=== PATIENT | male | born 1960 | race Caucasian/White ===

== ENCOUNTER 2019-09-23 06:08 | Inpatient (IN) | payer OTHER, SELFPAY ==
[2019-09-11 09:57] VITALS: BMI 29.4
[2019-09-23] VITALS (19 sets, daily range): BP systolic 119–155; BP diastolic 74–102; PULSE 81–107; RESP 10–20; TEMP 36.3–37.5; O2SAT 92–100; BMI 29.3
--- NOTE | 2019-09-23 | DI.RAD.S_ITS ---
PROCEDURE: XR LUMBAR SPINE 2-3V INDICATIONS: L3-4, L4-5, L5-S1 TLIF TECHNIQUE: 2 views of the lumbar spine were acquired. COMPARISON: None. FINDINGS: Bones: Digital imaging is acquired immediately after operative fusion between L3 and S1, utilizing bilateral transverse pedicle screws and bilateral vertical fixation rods with interbody disc cage prosthesis devices at L3-4, L4-5, and L5-S1. Soft tissues: Overlying bowel gas pattern is normal. No suspicious soft tissue calcifications. IMPRESSION: Normal alignment established after posterior fusion with interbody disc prosthesis devices, with fusion spanning from L3-S1. Dictated by: Matt Reyes M.D. on 09/23/2019 at 14:51 Approved by: Matt Reyes M.D. on 09/23/2019 at 14:53
[2019-09-23] MEDS: LACTATED RINGERS 1,000 ML 42 ML IV ×2 (07:39→11:23)
--- NOTE | 2019-09-23 07:39 | SUR.PREOP ---
pt reports has chronic numbness and tingling in bilateral lower extremities.
[2019-09-23] MEDS: CEFAZOLIN 2 GM/100 ML FROZ.PIGGY IV ×3 (07:46→21:33)
--- NOTE | 2019-09-23 07:46 | PM.PREOP ---
Pre-operative Note Interval Note History & Physical reviewed/Exam performed by Physician: Yes Changes to H&P: No
--- NOTE | 2019-09-23 08:30 | SUR.OPER ---
Prone on spine table, head in foam head support, padded chest and pelvic supports, gel pad at knees, lower legs supported by pillows; nipples, genitalia and toes free of pressure, arms secured on foam padded arm boards at <90 degrees abduction. Tape over blanket at thigh secured to table.
[2019-09-23] MEDS: BUPIVACAINE LIPOSOME 266 MG/20 ML VIAL INJ (08:40)
[2019-09-23] MEDS: BUPIVACAINE 0.25% W/ EPI 30 ML VIAL INJ (08:40)
--- NOTE | 2019-09-23 14:49 | P.OP_ITS ---
Operative Date/Time/Diagnoses Date of procedure: 09/23/19 Time of procedure: 08:11 Pre-op diagnosis: 1. L3-4, L4-5, L5-S1 spinal stenosis with neurogenic claudication 2. L3-4, L4-5, L5-S1 spondylolisthesis Post-op diagnosis: same Procedure & Clinicians Procedure: 1. L3-4, L4-5, L5-S1 Postero-lateral and posterior interbody fusion 2. L3-4, L4-5, L5-S1 interbody cage placement. 3. L3-4, L4-5, L5-S1 decompressive laminectomy with bilateral facetecomies 4. L3-4, L4-5, L5-S1 Posterior segmental instrumentation 5. [place] of bone marrow from iliac crest 6. Utilization of microsurgical technique and operating microscope Same procedure as scheduled: Yes Indications: Patient has been having chronic back pain and worsening lumbar radiculopathy. Patient failed multiple conservative management with worsening pain weakness and numbness in her lower extremity. Patient has been having difficulty performing activity of daily living. After discussing risks benefits of treatment options, patient elected proceed with surgery. Surgeon: Jag Land Tc Operator: Sunshine Barfield Click Yes if Unassisted: No Anesthesia Type: General Operative Notes Closure Type: primary Specimen(s): none sent Prosthetic devices, grafts, tissues, transplants, or devices: Globus revolve screws, Rise cages Applied: catheter Estimated Blood Loss (mL): 200 Blood products transfused: none Procedure in detail: Patient was seen in the preoperative area. Risks and benefits of the surgery was discussed with the patient. Informed consent was obtained from the patient and placed in the chart. Surgical site was marked. Patient was taken to the operative room. General anesthesia was administered. Prophylactic antibiotic was given to the patient less than 30 min before the incision was made. Patient was placed into a prone position on the Miguel table. Patient's back was then prepped and draped in the sterile fashion. Time- out was performed at this time. Using AP and lateral C-arm imaging the interval between L3-S1 was identified and marked on patient's back. A 3 inch incision 2 in from midline was made on the left side first. The fascia was incised in line with skin incision. Globus MARS retractors was placed inside the incision and docked onto the L3, L4 and L5 lamina. Using microsurgical technique and operating microscope, a L3, L4 and L5 laminectomy and L3-4, L4-5 L5-S1 facetectomy was performed using a Kerrison rongeur. Patient was found have severe central and neural foramen stenosis secondary to enlarged facet joints hypertrophied ligamentum flavum at all 3 levels and also significant amount of epidural lipomatosis at L5-S1 level. Patient's stenosis was fully decompressed after the decompression was completed. The disc space at L3-4, L4-5, L5-S1 was identified. And a total diskectomy was performed at L3-4, L4-5, L5-S1 level. The endplates were decorticated using a rasp and shaver. The total diskectomy and decortication was performed at L3-4, L4-5, L5-S1 level in order to to accomplish a L3-4, L4-5, L5-S1 fusion. The local bone from the laminectomy and facetectomy was saved for local bone grafting. After the total diskectomy and decortication was completed, Bio4 bone graft material was combined with local bone that was harvested earlier. At this time, a separate skin is incision was made over the iliac crest. A Jamshidi needle was inserted into the iliac crest through a separate skin incision. 5 cc of bone marrow aspiration was obtained through the separate skin incision using a Jamshidi needle from the iliac crest. The bone marrow aspiration was combined with local bone and the Bio4 bone grafting material. The bone grafting material was placed into the L3-4, L4-5, L5-S1 interbody space along with three cages, one expandable cage at each level. The cages were expanded to their maximum height using the torque limiting screwdriver. At this time a mirror image incision was made on the right side. The fascia was incised in line with the skin incision. Globus MARS retractor was inserted and docked onto the L3-4, L4-5, L5-S1 posterolateral gutter. Using the power drill, posterior-lateral decortication was performed at L3-4, L4-5, L5-S1 level until bleeding cortical bone was identified. The remaining bone grafting material was placed into the L3-4, L4-5 L5-S1 posterior lateral gutter he order to accomplish posterolateral fusion at the L3-4, L4-5 L5-S1 levels. Using the double C-arm technique, pedicle screws were placed into the L3, L4, L5, S1 pedicles bilaterally. This was done by placing the Jamshidi needle into the pedicles, then placing the guidewires over the Jamshidi needle, and finally placing the cannulated screws over the guidewires bilaterally. After the pedicle screws were placed, 2 titanium rods was locked into the heads of the pedicle screws using locking caps and torque limiting screwdriver. Total 8 pedicles screws were placed. After all the hardware was placed, and confirmed with AP and lateral C-arm imaging, the wound was then irrigated with sterile normal saline and packed with Ray-Angelita gauze for 3 min to accomplish hemostasis. After the gauze was removed the deep fascia was closed with #1 Vicryl suture. The subcutaneous layer was closed with 2-0 Vicryl. The skin was closed with skin aline. Patient tolerated the procedure well. There were no complications. Complications: none Post-operative Condition: stable Disposition: PACU Plan for aftercare: Admit to inpatient hospital
[2019-09-23] MEDS: HYDROMORPHONE 2 MG INJ IV ×6 (15:15→15:50)
[2019-09-23] MEDS: hydrOXYzine 50 MG/ML INJ 25 MG IM (15:27)
[2019-09-23] MEDS: fentaNYL 100 MCG/2 ML INJ IV ×2 (15:35→15:40)
[2019-09-23] MEDS: OXYCODONE IR 10 MG TABLET PO ×2 (19:15→23:35)
[2019-09-23] MEDS: SODIUM CHLORIDE 0.9% 1,000 ML 100 ML IV (19:17)
--- NOTE | 2019-09-23 19:48 | PC.NURSE ---
Addendum entered by Inez Orlando R.N. 09/23/19 22:39: Pt stable post op course. Med at 1915 for discomfort w/good relief. Call light w/in reach, bed alarm on for pt safety. Continue w/plan of care. Original Note: Pt arrived from PACU @ 1650 Alert/oriented, Dsg to back CDI IV hung at 100cc/hr via pump as per orders. crandall cath patent clear yellow urine. Call light w/in reach, family in room, pt calls approriately for needs.
[2019-09-23] MEDS: HYDROMORPHONE 0.5 MG INJ IV (21:32)
[2019-09-23] MEDS: hydrOXYzine pamoate 25 MG CAPSULE PO (23:36)
[2019-09-24] VITALS (7 sets, daily range): BP systolic 113–136; BP diastolic 61–93; PULSE 76–97; RESP 16–18; TEMP 36.3–37.6; O2SAT 93–95
[2019-09-24] MEDS: HYDROMORPHONE 0.5 MG INJ IV ×3 (01:30→09:19)
[2019-09-24] MEDS: OXYCODONE IR 10 MG TABLET PO ×2 (02:33→05:28)
[2019-09-24] MEDS: SODIUM CHLORIDE 0.9% 1,000 ML 100 ML IV (02:35)
[2019-09-24] MEDS: CEFAZOLIN 2 GM/100 ML FROZ.PIGGY IV (05:29)
[2019-09-24] MEDS: PANTOPRAZOLE 20 MG TABLET PO (05:31)
[2019-09-24 06:56] LABS: Hematocrit 38.7 % (41-53); Hemoglobin 13.3 g/dL (13.5-17.5)
--- NOTE | 2019-09-24 07:21 | PM.PN.1 ---
Subjective Subjective Date Patient Seen: 09/24/19 Time Patient Seen: 07:21 Interval history: Patient is POD# 1 s/p TLIF with Dr. Land. Pain has been moderate to severe overnight requiring IV Dilaudid. States he is getting minimal relief with Oxycodone. Pain is all in the low back denies any radicular symptoms. Has not mobilized as of yet. Garcia catheter in place. No nausea or vomiting. Exam Vital Signs (past 8 hours): - 09/23/19 23:40 09/24/19 06:08 Temperature 98.5 F 99.1 F Pulse Rate 96 H 85 Respiratory Rate 18 18 Blood Pressure 144/78 H 126/93 H Pulse Oximetry 97 93 Oxygen Delivery Method Room Air Oxygen Flow Rate 0 Narrative Exam Narrative: 59 year old male resting in bed. Alert and oriented. Dressing in place over lumbar spine is CDI. 5/5 BLE. Calves soft, compressible. Palpable pedal pulses. Objective Labs Result Diagrams: 09/24/19 06:35 Labs: Laboratory Results - last 24 hr 09/24/19 06:35 Hgb 13.3 L Hct 38.7 L Assessment & Plan Assessment & Plan narrative: Patient doing well postoperatively. PO Dilaudid 2mg for moderate and 4mg for severe pain added. Will try this instead of Oxycodone. Recommend utilizing PRN Vistaril as well. Mobilize with PT later today. Will discontinue Garcia catheter later today if he is ambulating. Likely discharge to home in the next 1-2 days.
[2019-09-24] MEDS: HYDROMORPHONE 4 MG TABLET PO ×5 (07:30→20:50)
[2019-09-24] MEDS: hydrOXYzine pamoate 25 MG CAPSULE PO (07:30)
[2019-09-24] MEDS: DOCUSATE 100 MG CAPSULE PO (08:28)
[2019-09-24] MEDS: FENOFIBRATE 145 MG TABLET PO (08:28)
[2019-09-24] MEDS: allopurinoL 100 MG TABLET PO (08:28)
[2019-09-24] MEDS: AMLODIPINE 5 MG TABLET PO (08:28)
[2019-09-24] MEDS: DEXAMETHASONE 10 MG/ML VIAL IV (10:13)
[2019-09-24] MEDS: HYDROMORPHONE 1 MG INJ IV ×3 (10:13→22:31)
--- NOTE | 2019-09-24 10:15 | CM.DANOTE ---
DCP: Case received, EMR reviewed and met with patient. , Marcela, was also present in room. Introduced self and role. Was able to converse with patient and obtain baseline history regarding activity level, and living situation. DCP assessment completed with information currently available. Patient is a 59 year old male who admitted yesterday morning to the care of the orthopedic team. PCP: Dr. Henley Payer: confirmed: [facility]. Patient came to the hospital for a surgical procedure. He had lumbar interbody fusion. 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 Patient has taken Ibuprofen every three hours to stay on top of his pain. Met with patient in his room. 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 Patient is employed at [employer], in [place]. P: DCP to continue to follow. He will be working with P.T. He should be able to go home when he is medically stable, and cleared by P.T. Jess Mcdonald RN/Senior Data Architect
--- NOTE | 2019-09-24 10:57 | PT-IP ANOTE ---
Per nursing, pt has had difficulty with pain control overnight and has not slept. Pt sleeping upon PT entry at 1055. RN advised this PT to hold evaluation until afternoon.
[2019-09-24] MEDS: hydrOXYzine pamoate 25 MG CAPSULE 50 MG PO ×2 (11:30→20:50)
[2019-09-24] MEDS: ACETAMINOPHEN 325 MG TABLET 650 MG PO ×3 (12:42→20:49)
--- NOTE | 2019-09-24 14:45 | PT.IIE ---
Current Diagnoses Spondylolisthesis, lumbar region (09/23/19) Other spondylosis with radiculopathy, lumbosacral region (09/23/19) Spinal stenosis, lumbar region with neurogenic claudication (09/23/19) Surgery Performed Operation Date: 09/23/19 07:45 Actual Procedures p L3-4, L4-5, L5-S1 TLIF w/ posterior intstrumentation(Not Applicable) - Jag Land MD Surgical History (Last Updated 09/11/19 @ 10:18 by Coby Zurita RN) History of colonoscopy (Acute) History of esophagogastroduodenoscopy (EGD) (Acute) Hx of arthroscopy of left knee (Acute) Hx of arthroscopy of right knee (Acute) Hx of hernia repair (Acute) Medical History (Last Updated 09/11/19 @ 10:18 by Coby Zurita RN) Anxiety (Acute) Arthritis (Acute) Asthma (Acute) GERD (gastroesophageal reflux disease) (Acute) Gout (Acute) HLD (hyperlipidemia) (Acute) HTN (hypertension) (Acute) Left ear hearing loss (Acute) Numbness and tingling of both legs (Acute) Numbness and tingling of both upper extremities (Acute) RLS (restless legs syndrome) (Acute) Sciatica (Acute) Seasonal allergies (Acute) Physical Therapy Inpatient Evaluation/Re-Eval M1 PT/OT-IP Prior Functional Status Start: 09/24/19 08:58 Freq: NEEDED Status: Active Protocol: Document 09/24/19 14:32 AW (Rec: 09/24/19 15:39 AW [email or web address]) Medical Review Prior Functional Status Medical History Reviewed Yes Diet/Fluid Consistency Regular Communication WNL Mobility and Gait Pt was independent without assistive device. He admits to being dependent on ibuprofen to manage his pain. Activities of Daily Living and IADL's Pt states he was independent but slow with dressing, had difficulty washing his back in the shower, and had difficulty with toilet hygiene . Although difficult, he managed to remain independent with self care. Prior Functional Level (Other details) Pt reports no falls in the past two years. Social History Household Members spouse Living Arrangements RV Number of Floors (Floors) One Floor Number of Stairs To Enter/Railing? 5 MANE with unilateral rail to enter his RV. However, pt and his plan to discharge to a cabin in the same [place] park. The equipment listed below refers to the cabin which is more accessible than his RV. 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 His will be available to assist at home for the first week. M2 PT-IP Current Condition Start: 09/24/19 08:58 Freq: NEEDED Status: Active Protocol: Document 09/24/19 14:32 AW (Rec: 09/24/19 15:39 AW [email or web address]) Physical Therapy Current Condition Current Condition Evaluation Date 09/24/19 Treatment Diagnosis s/p L3-4 L14-5 L5-S1 TLIF, impaired mobility Onset Date 09/23/19 Weight Bearing Status Weight Bearing Status Full Weight Bearing M3 PT-IP Subjective Start: 09/24/19 08:58 Freq: NEEDED Status: Active Protocol: Document 09/24/19 14:32 AW (Rec: 09/24/19 15:39 AW [email or web address]) Subjective Physical Therapy Visit Type Type Initial Evaluation Visit Start Time 14:03 Visit Stop Time 14:32 Total Visit Minutes 29 Notes Pt's , Marcela, present throughout evaluation. Number of DIRECTOR DIGITAL COMMUNICATIONS Visits 0 Physical Therapy Visit Comments Patient Comments Pt willing to participate with PT Patient Goals Pt hopes to discharge to a cabin near his RV with his 's support Therapy Pain Assessment Pain When Pain Assessed During Mobility Pain Present Pain Present Pain Reported Location lower back Intensity 6 Scale Used 5/10 at rest; 6/10 with mobility Pain Management Techniques Distraction,Timing of Activity with Medications M4 PT-IP Mobility and Gait Start: 09/24/19 08:58 Freq: NEEDED Status: Active Protocol: Document 09/24/19 14:32 AW (Rec: 09/24/19 15:39 AW [email or web address]) PT-Bed Mobility Assessment Rolling Type of Rolling Log Rolling Level of Assist Minimal Assistance,1 Person Assistance Supine to Sit Supine to Sit Minimal Assistance,1 Person Assistance Scooting Scooting to Edge of Bed Standby Assistance PT-Transfer Assessment Sit to and From Stand Sit to and from Stand Minimal Assistance,1 Person Assistance,Use of Upper Extremities Equipment Transfer Assistive Device Gait Belt,Front Wheeled Walker Orthotic/Prosthetic Devices or Brace: No Transfers Transfer Destination Chair Transfer Technique pt ambulated with FWW Transfer Ability Level of Assist Contact Guard Assistance,1 Person Assistance,Use of Upper Extremities Comments Mobility Comments Pt was sitting up in bed upon PT arrival, has not been out of bed since surgery. After brief instruction, pt was able to log roll to his left side and complete supine to sit min A x 1 to move his legs off the bed and to right his trunk . In sitting, pt was asymptomatic, denying lightheadedness or nausea. He completed sit to stand min A x 1 using FWW and ambulated in the room before deciding to walk in the halls. Following gait assesment, he returned to the room and transferred to the chair CGA and cues to use both arms for support on the chair in order to avoid twisting. Pt was positioned in the chair and left with OT attending. Gait Assessment Gait Gait Assistance Required: Contact Guard Assist Distance (Feet) 150 Able to Maintain Weight Bearing Status Yes During Gait Assistive Devices Assistive Device Gait Belt,Front Wheeled Walker Orthotic/Prosthetic Devices or Brace: No Gait Deviations General Gait Pattern Antalgic,Decreased Stride Length,Decreased Feet Clearance,Flexed Trunk Factors Limiting Gait Function Factors Limiting Gait Function Decreased Activity Tolerance, Decreased Strength,Pain Comments Gait Comments Pt amulated in the hallway 150 feet with FWW CGA requiring occasional cues to slow down and to lengthen his steps. Pt was able to correct his step lengths so that each foot cleared the other by end of gait assessment. Stair Climbing Assessment Comments Stair Climbing Comments Not assessed PT-Balance Assessment Sitting Balance and Reactions Static Sitting Balance Ability Good Dynamic Sitting Balance Ability Good Standing Balance and Reactions Static Standing Balance Ability Good Dynamic Standing Balance Ability Good Device Used FWW M5 PT-IP Objective Assessments Start: 09/24/19 08:58 Freq: NEEDED Status: Active Protocol: Document 09/24/19 14:32 AW (Rec: 09/24/19 15:39 AW [email or web address]) Orientation Orientation/Cognition Level of Alertness Alert Orientation Name,Day of Week,Place, Situation Language Function Ability No Deficits Noted Safety Awareness Understands Safety Issues Memory Description No Deficits Noted Gross Range of Motion Lower Extremity ROM Assessment Within Functional Limits Strength Upper Extremity Strength Assessment Within Functional Limits Lower Extremity Strength Assessment Bilaterally Impaired Comments Strength Comments BLE 4-/5 globally Coordination Assessment Gross Coordination Gross Coordination WNL Sensation Assessment Sensation Gross Sensation WNL M6 PT-IP Treatment Start: 09/24/19 08:58 Freq: NEEDED Status: Active Protocol: Document 09/24/19 14:32 AW (Rec: 09/24/19 15:39 AW [email or web address]) Physical Therapy Treatment Education Education Provided Precautions,Weight Bearing Status,Post-Op Packet,Safety Other Treatments Other Treatment Performed Provided education on role of PT, plan of care, spinal precautions, and selection of appropriate assistive device. M7 PT-IP Assessment and Plan Start: 09/24/19 08:58 Freq: NEEDED Status: Active Protocol: Document 09/24/19 14:32 AW (Rec: 09/24/19 15:39 AW [email or web address]) PT Summary Assessment and Plan Potential Rehabilitation Potential Excellent Status of Condition at Evaluation Evolving Summary Impairments Pain,ROM,Strength,Bed Mobility ,Transfers,Gait,Activity Tolerance Assessment Summary Efrain is a 59 yo man seen for PT evaluation on POD1 following L3-S1 TLIF. At baseline, pt is independent with all functional mobility but admits to difficulty managing ADL's. On evaluation, pt required min assist x 1 for bed mobility and sit to stand, CGA for ambulation with FWW. PT anticipates pt will meet the functional goals of this plan of care and be safe to discharge to the cabin (not his RV) with spouse support once medically cleared. Goals Bed Mobility Goal Independent Transfer Goal Independent Gait Goal Independent,Front Wheel Walker Gait Distance 300 Other Goals - Up/down 5 steps with unilateral rail if discharging to his RV. If discharging to ramped cabin, no need to practice stairs Days to Meet Goals 2 Frequency of Treatment Frequency Of Treatment Twice a Day Treatment Plan Physical Therapy Treatment Plan Bed Mobility Training,Transfer Training,Gait Training, Therapeutic Exercise,Balance Retraining,Post Op Education, Discharge Planning,Hot or Cold Pack,Neuromuscular Re-ed, Coordination Retraining,Manual Therapy Other Recommendations and Next Treatment Progress gait distance, review Focus log roll for bed mobility, assess safety on stairs if appropriate Recommendations To Nursing Amount of Assist Needed Standby Assistance,1 Person Assist Discharge Recommendations PT Discharge Recommendations Home with Assistance Equipment Needed for Home Before tub transfer bench Discharge Transportation Needs at Discharge Private Vehicle
--- NOTE | 2019-09-24 15:05 | OT.IP.EVAL ---
Current Diagnoses Spondylolisthesis, lumbar region (09/23/19) Other spondylosis with radiculopathy, lumbosacral region (09/23/19) Spinal stenosis, lumbar region with neurogenic claudication (09/23/19) Surgery Performed Operation Date: 09/23/19 07:45 Actual Procedures p L3-4, L4-5, L5-S1 TLIF w/ posterior intstrumentation(Not Applicable) - Jag Land MD Past Medical History (Last Updated 09/11/19 @ 10:18 by Coby Zurita RN) Anxiety (Acute) Arthritis (Acute) Asthma (Acute) GERD (gastroesophageal reflux disease) (Acute) Gout (Acute) HLD (hyperlipidemia) (Acute) HTN (hypertension) (Acute) Left ear hearing loss (Acute) Numbness and tingling of both legs (Acute) Numbness and tingling of both upper extremities (Acute) RLS (restless legs syndrome) (Acute) Sciatica (Acute) Seasonal allergies (Acute) Surgical History (Last Updated 09/11/19 @ 10:18 by Coby Zurita RN) History of colonoscopy (Acute) History of esophagogastroduodenoscopy (EGD) (Acute) Hx of arthroscopy of left knee (Acute) Hx of arthroscopy of right knee (Acute) Hx of hernia repair (Acute) Occupational Therapy Inpatient Evaluation/Re-Eval M1 PT/OT-IP Prior Functional Status Start: 09/24/19 08:58 Freq: NEEDED Status: Active Protocol: Document 09/24/19 15:34 PJJannie (Rec: 09/24/19 16:00 PJJannie [id number]) Medical Review Prior Functional Status Medical History Reviewed Yes Diet/Fluid Consistency Regular Communication WNL Mobility and Gait Pt states he ambulated without a device prior to surgery. Activities of Daily Living and IADL's Pt states he was independent with self care, shares IADLS with but performed slowly due to low back pain. 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 His works at [employer] also. Social History Household Members spouse Living Arrangements RV Number of Floors (Floors) One Floor Number of Stairs To Enter/Railing? RV has 3 stairs to enter with grab bar. Pt/ plan to d[place] to [place] where they will stay for 2 weeks. 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 Pt normally uses bath house at campground to shower with grab bars and built in shower seats. Cabin has tub shower combo. Pt plans to stand to shower there. M2 OT-IP Current Condition Start: 09/24/19 1505 Freq: Status: Active Protocol: Document 09/24/19 15:05 PJM (Rec: 09/24/19 16:00 PJM [id number]) Occupational Therapy Current Condition Current Condition Evaluation Date 09/24/19 Treatment Diagnosis decreased self care, mobility s/p L3-S1 TLIF w/posterior instrumentation Diagnosis Onset Date 09/23/19 Post Operative Precautions Lumbar Precautions Log Roll,No Twisting,Limit Bending,Lifting Restriction of 10 lbs,Gait Belt above Incisional Area M3 OT- IP Subjective and Pain Start: 09/24/19 15:05 Freq: Status: Active Protocol: Document 09/24/19 15:05 PJM (Rec: 09/24/19 16:00 PJM [id number]) OT- Subjective Occupational Therapy Visit Type Type Initial Evaluation Visit Start Time 14:32 Visit Stop Time 15:05 Total Visit Minutes 33 Notes Pt's here for education this session. Occupational Therapy Visit Comments Patient Comments I am so glad the nurse was good at getting my pain under control today. Patient/Caregiver Goals to go home and resume light duty work in 6 weeks OT Pain Assessment Pain When Pain Assessed After Treatment Pain Present Pain Present Pain Reported Location lower back Intensity 5 Scale Used Numeric (1 - 10) Description Aching,Acute Pain Behaviors Guarding Management Techniques Distraction,Re-positioning, Timing of Activity with Medications M4 OT- IP ADL's Start: 09/24/19 15:05 Freq: Status: Active Protocol: Document 09/24/19 15:05 PJM (Rec: 09/24/19 16:00 PJM [id number]) OT [id number] General Evaluation Self-Feeding Ability Independent OT ADL-Grooming General Evaluation Grooming Ability Standby Assistance Areas Needing Assistance Face Washing Comments OT Grooming Comments seated in chair OT ADL-Oral Care General Eval Areas of Assistance Retrieving/Set-Up of Items OT ADL-Dressing General Eval Upper Body Dressing Ability Standby Assistance Lower Body Dressing Ability Maximum Assistance Areas Needing Assistance Socks Comments OT Dressing Comments Began education re: use of dental service chief and sock aid for lower body dressing within lumbar spine precautions. Provided equipment at pt request. OT ADL-Toileting General Evaluation Toileting Ability Total Assistance Comments OT Toileting Comments crandall still in place; pt has obtained RTS for use on standard toilet at home; provided education re; body mechanics for stacie care OT ADL-Bathing Bathing Type Bathing Type Shower Comments OT Bathing Comments to be assessed when activity tolerance improves M5 OT- IP IADL's Start: 09/24/19 15:05 Freq: Status: Active Protocol: Document 09/24/19 15:05 PJ (Rec: 09/24/19 16:00 [facility] [id number]) OT-Instrumental Activities of Daily Living Deficits IADL Deficits Identified Deficits Home Safety Awareness Awareness of Need for Assistance at Home Good Awareness Ability to Problem Solve Emergency Able to Problem Solve Situations Home Safety Comments supportive can assist until pt able Medication Management Medication Management No Deficits Identified Money Management Money Management No Deficits Identified Meal Preparation Meal Preparation Caregiver Provides Assist Meal Preparation Comments until pt able Harness Puller Harness Puller Caregiver Provides Assist Harness Puller Comments until pt able Driving Driving Caregiver Provides Assist Driving Comments until pt able M6 OT- IP Functional Cognition Start: 09/24/19 15:05 Freq: Status: Active Protocol: Document 09/24/19 15:05 PJM (Rec: 09/24/19 16:00 [facility] [id number]) Cognitive Factors Limiting Selfcare Function Cognitive Ability Level of Alertness Alert Patient Orientation Name,Age,Birthday,Month,Date, Year,Day of Week,Place, Situation Attention Span Ability Capable of Focused Attention, Capable of Sustained Attention Ability to Follow Commands Able to Follow Multi-Step Commands Memory Description No Deficits Noted Safety Awareness No Deficits Noted Problem Solving Ability No deficits Noted Cognitive Comments Cognitive Assessment Comments Pt/ verbalize understanding of lumbar spine precautions. OT- Vision and Hearing OT- Hearing Assessment OT- Hearing Assessment WFL OT- Vision Assessment Visual Acuity WFL M7 OT- IP Mobility and Balance Start: 09/24/19 15:05 Freq: Status: Active Protocol: Document 09/24/19 15:05 PJM (Rec: 09/24/19 16:00 PJ [id number]) OT-Transfer Assessment Comments Mobility Comments did not occur this session; pt seen up in recliner; see P.T. notes OT- Gait Assessment Comments Gait Ability Comments see P.T. notes OT- Balance Assessment Sitting Balance and Reactions Static Sitting Balance Ability Good Dynamic Sitting Balance Ability Good Standing Balance and Reactions Static Standing Balance Ability Good Dynamic Standing Balance Ability Good Comments Other Balance Tests/Deviations/Treatment with FWW : M8 OT- IP Objective Assessments Start: 09/24/19 15:05 Freq: Status: Active Protocol: Document 09/24/19 15:05 PJM (Rec: 09/24/19 16:00 PJ [id number]) OT Gross Range of Motion Upper Extremity Range of Motion Assessment Within Functional Limits OT Strength Upper Extremity Strength Assessment Within Functional Limits OT- Coordination Assessment Comments Coordination Comments BUE WNL OT-Muscle Tone Assessment Muscle Tone WNL Yes OT Sensation Assessment Comments Summary Comments BUE WNL per pt Edema Edema Absent M9 OT- IP Assessment and Plan Start: 09/24/19 15:05 Freq: Status: Active Protocol: Document 09/24/19 15:05 PJM (Rec: 09/24/19 16:00 PJ [id number]) OT Summary Assessment and Plan Potential Rehabilitation Potential Good Analytic Complexity at Evaluation Low Summary OT Impairments Pain,Functional Mobility, Grooming,Dressing,Toileting, Bathing,Toilet Transfers, Shower Transfers,Activity Tolerance Assessment Summary Low complexity OT assessment completed on this 59 yr old male admitted for L3-S1 TLIF with posterior instrumentation. Pt has significant performance deficits in activity tolerance , standing grooming, lower body dressing, bathing and toileting due to post op pain. Began education with pt/ re: lumbar spine precautions, adapted ADL techniques for lower body dressing,toileting, chair selection, posture and bathroom safety equipment options. Pt will benefit from 1-2 additional OT visits here to address the goals below. Anticipate pt will be able to d/c home with assist from who works at [employer] where they live. 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 Goals Grooming Goal Independent Dressing Goal Standby Assistance,Shirt Creaser, Sock Aid Toileting Goal Standby Assistance Bathing Goal Minimal Assistance,Grab Bars, Long Handled Sponge or [place] Toilet Transfer Goal Standby Assistance,Raised Toilet Seat Shower Transfer Goal Contact Guard Assistance,Tub/ Shower Combination,Grab Bars Patient/Caregiver Education Goal Caregiver Independent Assisting Patient OT-Other Goals Grooming to be done standing at sink with good body mechanics and safety awareness . Days to Meet Goals 2 Frequency of Treatment Frequency Of Treatment Once a Day Treatment Plan OT Treatment Plan ADL Training,Functional Mobility,Patient/Family Education,Discharge Planning Discharge Recommendations OT Discharge Recommendations Home with Assistance Transportation Needs at Discharge Private Vehicle
[2019-09-24] MEDS: DEXAMETHASONE 4 MG/ML VIAL IV (17:52)
--- NOTE | 2019-09-24 17:58 | PC.NURSE ---
Addendum entered by Inez Orlando R.N. 09/24/19 22:54: PT IS NOT ON TELE: DOCUMENTED TELE READING ON WRONG PT Addendum entered by Inez Orlando R.N. 09/24/19 22:38: Pt pain at 7/10 Med w/Dilaudid IVP as per order. Continue w/plan of care. Addendum entered by Inez Orlando R.N. 09/24/19 21:17: Pt resting at intervals throughout evening. This RN agrees w/the SN findings as noted. Med frequently for comfort. Foot SCD in place. Tele shows ST per ICU staff. Call light w/in reach, bed alarm on for pt safety. Continue w/plan of care. Original Note: Pt med for discomfort at 1730 w/fair relief. Tele showing ST per ICU staff. Surgical dsg CDI. HL LFA intact/patent. Garcia cath patent clear yellow urine. Call light w/in reach, bed alarm on for pts safety.
[2019-09-25] MEDS: ACETAMINOPHEN 325 MG TABLET 650 MG PO ×3 (00:10→08:24)
[2019-09-25] MEDS: DEXAMETHASONE 4 MG/ML VIAL IV ×3 (00:10→11:34)
[2019-09-25] MEDS: HYDROMORPHONE 4 MG TABLET PO ×4 (00:12→11:31)
[2019-09-25] MEDS: hydrOXYzine pamoate 25 MG CAPSULE 50 MG PO (05:23)
--- NOTE | 2019-09-25 05:28 | PC.NURSE ---
Garcia removed at 0528 on 09/25/2019 without difficulty.
[2019-09-25] MEDS: PANTOPRAZOLE 20 MG TABLET PO (05:45)
--- NOTE | 2019-09-25 07:40 | PM.DS.1 ---
History of Present Illness History of Present Illness Date Patient Seen: 09/25/19 Time Patient Seen: 07:40 Chief complaint: [id number] Narrative: Please see HPI previously recorded in the chart. Discharge Providers Provider Date of admission: 09/23/19 06:08 Discharge Date: 09/25/19 Primary care physician: Jovanny Henley DO Consults: 09/11/19 10:35 Consult to Respiratory Therapy Evaluate & Treat Comment: INPT 09/23-Stop Bang positive Physician Instructions: Evaluate and treat 09/23/19 07:01 Consult to Respiratory Therapy Evaluate & Treat Comment: Physician Instructions: Evaluate and treat 09/23/19 16:52 Consult to Occupational Therapy Evaluate & Treat Comment: Physician Instructions: Evaluate and treat Consult to Physical Therapy Evaluate & Treat Comment: Physician Instructions: Evaluate and Treat Discharge provider: Monalisa Blake PA-C Summary Hospital Course Discharge Diagnosis: s/p L3-4, L4-5, L5-S1 transforaminal lumbar interbody fusion Hospital Course: Efrain is a 59 year old male who has been having chronic back pain and worsening lumbar radiculopathy. Patient failed multiple conservative management with worsening pain weakness and numbness in his lower extremities. Patient has been having difficulty performing activity of daily living. After discussing risks benefits of treatment options, patient elected to proceed with surgery. After obtaining informed consent he was taken to the operating room where he underwent a p L3-4, L4-5, L5-S1 TLIF with Dr. Land which he tolerated well without complications. He was then taken to the acute care floor where he has progressed as expected post operatively. On POD#1 he was able to mobilize with PT. His crandall catheter was removed and he began voiding appropriately. He had inadequate relief of his postoperative pain with Oxycodone so he was transitioned to P Dilaudid which is providing adequate relief. Due to pain complaints he was given one time dose of Decadron 10mg with 4mg Q6hrs for 24 hours following. On POD#2 he noted improvement in his pain control. He continued to mobilize with PT. He was provided prescriptions of Dilaudid, Vistaril, and Docusate. He is medically stable for discharge to home. Status at Discharge Cognitive/behavioral status at discharge: oriented Functional status at discharge: uses cane/walker Overall status at discharge: patient is progressing back to baseline Exam Vital Signs (past 8 hours): - 09/24/19 23:45 Temperature 98.3 F Pulse Rate 91 H Respiratory Rate 18 Blood Pressure 136/78 Pulse Oximetry 95 Oxygen Delivery Method Nasal Cannula Oxygen Flow Rate 2 Narrative Exam Narrative: 59 year old male resting in bed, alert and oriented in no acute distress. Dressing over the lumbar spine with some shadow drainage, peeling up. Calves soft, compressible. 5/5 BLE. New coversite dressing applied. Objective Labs Result Diagrams: 09/24/19 06:35 Discharge Plan Discharge Plan Patient Disposition: Home Discharge comment: Home after cleared by PT Discharge orders & Medications Prescriptions: New acetaminophen 325 mg Tablet 650 mg PO Q4HR Qty: 40 RF: 0 hydromorphone 2 mg Tablet 2 mg PO Q4-6H PRN (Reason: Pain, Moderate (4-6)) Qty: 60 RF: 0 docusate sodium [DOK] 100 mg Capsule 100 mg PO BID Qty: 40 RF: 0 hydroxyzine pamoate 25 mg Capsule 50 mg PO Q4HR PRN (Reason: Nausea) Qty: 60 RF: 0 Continued amlodipine 2.5 mg Tablet 5 mg PO DAILY RF: 0 allopurinol 100 mg Tablet 100 mg PO DAILY RF: 0 aspirin 81 mg Tablet,Delayed Release (Dr/Ec) 81 mg PO DAILY RF: 0 ibuprofen 200 mg Tablet 600 mg PO Q3H PRN (Reason: Pain) RF: 0 omeprazole 20 mg Capsule,Delayed Release(Dr/Ec) 20 mg PO DAILY RF: 0 albuterol sulfate [Ventolin HFA] 90 mcg/actuation Hfa Aerosol Inhaler 2 puff INHALATION Q4-6H PRN (Reason: Asthma, shortness of breath) RF: 0 fenofibrate nanocrystallized 145 mg Tablet 145 mg PO DAILY RF: 0 potassium gluconate 595 mg (99 mg) Tablet 595 mg PO DAILY RF: 0 Follow up/Referrals: Jovanny Henley DO [Primary Care Provider] - Jag Land MD [Physician] - Diet/Activity/Treatments Diet: Diet as Tolerated Activity: Weight bear as tolerated. No bending, lifting, or twisting. Use a front wheel walker for fall prevention. Cold/Heat Therapy: Ice packs as needed. Skin/Wound/Dressing Care Report to your healthcare provider any signs of infection, such as:: chills, fever, night sweats, unusual drainage and unusual redness Dressing: Dressing is to remain in place. If dressing becomes saturated or soiled please call the office. Visit Report/Discharge Packet Instructions: DI for Prescription Opioid Use, Senna, Hydromorphone, Hydroxyzine, DI for Transforaminal Lumbar Interbody Fusion Discharge Data Primary Care Provider: Jovanny Henley Discharges patient from system. Discharge Date/Time: 09/25/19 12:36
[2019-09-25 08:00] VITALS: BP 139/75; PULSE 69; RESP 16; TEMP 36.7; O2SAT 95
[2019-09-25] MEDS: allopurinoL 100 MG TABLET PO (08:25)
[2019-09-25] MEDS: AMLODIPINE 5 MG TABLET PO (08:25)
[2019-09-25] MEDS: FENOFIBRATE 145 MG TABLET PO (08:26)
[2019-09-25] MEDS: DOCUSATE 100 MG CAPSULE PO (08:26)
[2019-09-25 09:14] VITALS: PULSE 74; O2SAT 94
--- NOTE | 2019-09-25 10:36 | PC.NURSE ---
Per Noc shift report Patient was asking to double up on his pain medication which would of been 8mg of dilaudid vs 4mg of dilaudid. assembler gold frame RN explained to patient that he could not do this and some pain is expected. This RN went into room this am to do rounds with Monalisa PAPPAS and sat perameters with patient about pain medication. Explained that we would given him 4mg of po dilaudid every 3-4 hours and stay on this regimen. That we usually try to stay away from Vistaril during the day because it makes the patient to groggy, and not good when working with physical therapy. Dressing to lower back changed to cover site, which is water proof for taking showers. He denies any numbness or tingling to lower extremities and states that before surgery he use to have shooting pains down both of his legs. Has ambulate in the halls and will work with physical therapy, and then be discharged home.
--- NOTE | 2019-09-25 11:55 | OT.IP.TRT ---
Current Diagnoses Spondylolisthesis, lumbar region (09/23/19) Other spondylosis with radiculopathy, lumbosacral region (09/23/19) Spinal stenosis, lumbar region with neurogenic claudication (09/23/19) Arthrodesis status (09/23/19) Surgery Performed Operation Date: 09/23/19 07:45 Actual Procedures p L3-4, L4-5, L5-S1 TLIF w/ posterior intstrumentation(Not Applicable) - Jag Land MD Occupational Therapy Treatment Note M3 OT- IP Subjective and Pain Start: 09/24/19 15:34 Freq: Status: Active Protocol: Document 09/25/19 11:55 PJM (Rec: 09/25/19 14:14 PJM [id number]) OT- Subjective Occupational Therapy Visit Type Type Treatment Note Visit Start Time 11:36 Visit Stop Time 11:55 Total Visit Minutes 19 Notes Pt's here for education this session. Occupational Therapy Visit Comments Patient Comments I am ready to get dressed now. 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 OT Pain Assessment Pain When Pain Assessed After Treatment Pain Present Pain Present Pain Reported Location lower back Intensity 6 Scale Used Numeric (1 - 10) Description Aching,Acute Pain Behaviors Guarding Management Techniques Distraction,Re-positioning, Timing of Activity with Medications M4 OT- IP ADL's Start: 09/24/19 15:34 Freq: Status: Active Protocol: Document 09/25/19 11:55 PJM (Rec: 09/25/19 14:14 PJM [id number]) OT ADL-Dressing General Eval Upper Body Dressing Ability Independent Lower Body Dressing Ability Standby Assistance,Minimal Assistance Areas Needing Assistance Underpants/Brief,Pants/Shorts, Socks,Shoes Comments OT Dressing Comments Provided further education re: lower body dressing with adaptive equipment including trial of wide sock aid. Pt prefers standard sock aid and is SBA for lower body dressing with forepart rasper and sock aid except min assist from to tie shoes. OT ADL-Toileting General Evaluation Toileting Ability Independent OT ADL-Bathing Bathing Type Bathing Type Sponge Bath Comments OT Bathing Comments Pt declined to shower here but requested to be set up with sponge bath. is SPECIFICATIONS CHECKER and able to assist pt PRN. M6 OT- IP Functional Cognition Start: 09/24/19 15:34 Freq: Status: Active Protocol: Document 09/25/19 11:55 PJM (Rec: 09/25/19 14:14 [facility] [id number]) Cognitive Factors Limiting Selfcare Function Cognitive Ability Level of Alertness Alert Attention Span Ability Capable of Focused Attention, Capable of Sustained Attention Ability to Follow Commands Able to Follow Multi-Step Commands Memory Description No Deficits Noted Safety Awareness No Deficits Noted Problem Solving Ability No deficits Noted Cognitive Comments Cognitive Assessment Comments Pt and verbalize and demonstrate understanding of all education. M7 OT- IP Mobility and Balance Start: 09/24/19 15:34 Freq: Status: Active Protocol: Document 09/25/19 11:55 PJM (Rec: 09/25/19 14:14 [facility] [id number]) OT-Transfer Assessment Sit to and From Stand Sit to and from Stand Standby Assistance Transfers Transfer Ability Standby Assistance Technique Transfer Destination Car,Chair Transfer Technique Stand Pivot Devices Transfer Assistive Devices Front Wheeled Walker Comments Mobility Comments Provided education er: car transfer technique OT- Balance Assessment Sitting Balance and Reactions Static Sitting Balance Ability Good Dynamic Sitting Balance Ability Good Standing Balance and Reactions Static Standing Balance Ability Good Dynamic Standing Balance Ability Good Comments Other Balance Tests/Deviations/Treatment during lower body dressing : M9 OT- IP Assessment and Plan Start: 09/24/19 15:34 Freq: Status: Active Protocol: Document 09/25/19 11:55 PJM (Rec: 09/25/19 14:14 [facility] [id number]) OT Summary Assessment and Plan Potential Rehabilitation Potential Excellent Summary OT Impairments Pain Progress Towards Goals Safe For Discharge,Goals Met Assessment Summary All OT education completed with pt and today as described above. Pt plans to d/c home today with assist from who works a campground where they live. All OT goals achieved and no further OT services needed. Frequency of Treatment Frequency Of Treatment Discharge Discharge Recommendations OT Discharge Recommendations Home with Assistance Transportation Needs at Discharge Private Vehicle
== END 2019-09-25 12:36 | disposition home or self-care (01) | DRG 455 ==
PROVIDERS: Admitting Provider Orthopaedic Surgery Orthopaedic Surgery of the Spine; PCP Internal Medicine; Referring Provider Orthopaedic Surgery Orthopaedic Surgery of the Spine; Visit Provider Orthopaedic Surgery Orthopaedic Surgery of the Spine
PROC: 0SG10AJ Fusion of 2 or more Lumbar Vertebral Joints with Interbody Fusion Device, Posterior Approach, Anterior Column, Open Approach (ICD-10-PCS; principal; 2019-09-23 07:45)
DX: M48.062 Spinal stenosis, lumbar region with neurogenic claudication (principal); M43.16 Spondylolisthesis, lumbar region; M47.27 Other spondylosis with radiculopathy, lumbosacral region; G47.30 Sleep apnea, unspecified; I10 Essential (primary) hypertension; M10.9 Gout, unspecified; K21.9 Gastro-esophageal reflux disease without esophagitis; J45.909 Unspecified asthma, uncomplicated; G89.18 Other acute postprocedural pain; Z87.891 Personal history of nicotine dependence
CPT/HCPCS: 36415; 72100; 76000; 85014; 85018; 94760; 97161; 97165; 97535; C1776; C9290; J0330; J0690; J1100; J1170; J2405; J2704; J3010; J3410